=== PATIENT | male | born 1970 | race Caucasian/White ===

== ENCOUNTER → 2016-08-11 | Outpatient (CLI) | payer OTHER ==
[2016-08-11 08:20] LABS: BASO % 0.3 % (0.0-1.0); EOS # 0.2 10*3/uL (0.0-0.4); EOS % 3.5 % (1.0-4.0); HEMATOCRIT 45.6 % (42.0-52.0); HEMOGLOBIN 14.7 g/dl (14.0-18.0); LYMPH # 1.6 10*3/uL (1.3-4.4); LYMPH % 27.6 % (27.0-41.0); MEAN CELL VOLUME 88.2 fl (80.0-94.0); MEAN CORPUSCULAR HGB 28.4 pg (27.0-31.0); MEAN CORPUSCULAR HGB CONC 32.2 g/dl (33.0-37.0); MEAN PLATELET VOLUME 11.3 fl (9.6-12.3); MONO # 0.5 10*3/uL (0.1-1.0); MONO % 8.4 % (3.0-9.0); NEUT # 3.4 10*3/uL (2.3-7.9); NEUT % 59.9 % (47.0-73.0); PLATELET COUNT AUTOMATED 170 10*3/uL (130-400); RED BLOOD COUNT 5.17 10*6/uL (4.50-5.90); RED CELL DISTRI WIDTH 14.3 % (0-14.5); WHITE BLOOD COUNT 5.7 10*3/uL (4.8-10.8)
[2016-08-11 08:52] LABS: ALBUMIN 3.4 gm/dl (3.1-4.5); ALKALINE PHOSPHATASE 102 U/L (45-117); BILIRUBIN, TOTAL 0.3 mg/dl (0.2-1.0); BUN 15 mg/dl (7-24); CARBON DIOXIDE 24 mmol/L (21-32); CHLORIDE 108 mmol/L (98-107); CHOLESTEROL 185 mg/dL (<200); EST GLOM FILT AFRICAN AMERICAN > 60 ml/min; FREE T4 0.84 ng/dl (0.76-1.46); GLUCOSE 97 mg/dL (65-99); HDL CHOLESTEROL 47 mg/dl (40-60); LDL CHOLESTEROL 126 mg/dL (9-159); POTASSIUM 4.6 mmol/L (3.5-5.1); SGOT/AST 15 IU/L (3-35); SGPT/ALT 22 U/L (12-78); SODIUM 142 mmol/L (136-145); TOTAL PROTEIN 7.1 gm/dL (6.4-8.2); TRIGLYCERIDES 61 mg/dl (<150); VLDL CHOLESTEROL 12 mg/dL (6-40)
[2016-08-11 10:16] LABS: FOLIC ACID 18.29 ng/mL (>5.38); VITAMIN D, 25-HYDROXY 33.9 ng/mL (30-100)
[2016-08-12 18:06] LABS: LYME AB/TOTAL IMMUNOGLOBULINS <0.91 ISR (0.00-0.90)
== END | disposition home or self-care (01) ==
LOC: LAB 07:57
PROVIDERS: Internal Medicine
DX: Z11.2 Encounter for screening for other bacterial diseases (principal); M25.50 Pain in unspecified joint; E66.01 Morbid (severe) obesity due to excess calories; W57.XXXA Bitten or stung by nonvenomous insect and other nonvenomous arthropods, initial encounter